=== PATIENT | male | born 1970 | race Caucasian/White ===

== ENCOUNTER → 2019-12-17 | Outpatient (CLI) | payer OTHER ==
[~2019-12-17] MED LIST: BACLOFEN20 MG PO; BUPROPION XL300 MG PO; BUSPAR30 MG PO; CULTURELLE KID1 EAC1 PO; DORZOLAMIDE 2%10 ML EA. EYE; FENOFIBRATE150 MG PO; HYDROCHLOROTH12.5 M1 PO; LATANOPROST 0.2.5 ML OPHTHALMIC; LISINOPRIL-HCT1 EAC1 PO; MULTIVITAMINS1 EAC7 PO; OMEPRAZOLE 20 M20 M1 PO; OMEPRAZOLE40 MG PO; PROTONIX40 M2 PO
== END ==
LOC: M.PC 10:00
DX: M47.812 Spondylosis without myelopathy or radiculopathy, cervical region (principal); M50.30 Other cervical disc degeneration, unspecified cervical region; Z79.899 Other long term (current) drug therapy; Z88.8 Allergy status to other drugs, medicaments and biological substances

== ENCOUNTER → 2020-01-05 | Outpatient (CLI) | payer OTHER | LOC: M.LAB 01:43 | DX: E87.6 Hypokalemia (principal) ==

== ENCOUNTER → 2021-03-21 | Outpatient (CLI) | payer OTHER | LOC: M.PC 09:04 | PROVIDERS: ATTEND Physical Medicine & Rehabilitation | DX: M47.812 Spondylosis without myelopathy or radiculopathy, cervical region (principal); M50.30 Other cervical disc degeneration, unspecified cervical region; Z98.1 Arthrodesis status ==

== ENCOUNTER → 2021-03-28 | Outpatient (CLI) | payer OTHER | LOC: M.LAB 05:27 | PROVIDERS: ATTEND Anesthesiology | DX: E87.6 Hypokalemia (principal) ==

== ENCOUNTER → 2021-05-09 | Outpatient (CLI) | payer OTHER | LOC: M.PC 08:39 | PROVIDERS: ATTEND Physical Medicine & Rehabilitation | DX: M47.812 Spondylosis without myelopathy or radiculopathy, cervical region (principal); M50.321 Other cervical disc degeneration at C4-C5 level; Z79.899 Other long term (current) drug therapy; Z79.891 Long term (current) use of opiate analgesic ==